=== PATIENT | female | born 1980 | race Asian ===

== ENCOUNTER 2016-11-24 14:55 | Emergency (ER) | payer OTHER ==
--- NOTE | 2016-11-24 14:59 | PDOC ---
History of Present Illness <Bunny Marc - Last Filed: 11/24/16 15:13> - General History Source: Patient Exam Limitations: No Limitations - History of Present Illness Initial Comments: 11/24/16 15:06 The patient is a 36 year old female with no significant past medical history, presenting to the Emergency Department with a splinter to her right pointer finger as of last night. She reports that the splinter is stuck under the fingernail, towards the medial aspect of her finger. She states that she soaked her finger in warm water last night but was unable to pull out the splinter. She reports pain associated with the splinter. She states that she is right handed. She admits that her last tetanus vaccination was more than 5 years ago. Allergies: Penicillin Social Hx: Denies history of cigarette smoking. <Maylin Trotter - Last Filed: 11/24/16 15:17> - General Chief Complaint: Injury Stated Complaint: RT 2ND FINGER SPLINTER Time Seen by Provider: 11/24/16 14:59 Past History <Bunny Marc - Last Filed: 11/24/16 15:13> <Maylin Trotter - Last Filed: 11/24/16 15:17> - Past Medical History Allergies/Adverse Reactions: Allergies Allergy/AdvReac Type Severity Reaction Status Date / Time Penicillins Allergy Hives Verified 11/24/16 15:00 Home Medications: Ambulatory Orders NK [No Known Home Medication] 11/24/16 Review of Systems - Review of Systems Able to Perform ROS?: Yes Comments:: 11/24/16 15:06 CONSTITUTIONAL: Absent: fever, no chills, no fatigue MUSCULOSKELETAL: Absent: back pain, no arthralgia, no myalgia SKIN: Present: + splinter under nail bed of right pointer finger Absent: rash <Maylin Trotter - Last Filed: 11/24/16 15:17> *Physical Exam - Vital Signs Last Vital Signs Temp Pulse Resp BP Pulse Ox 98.8 F 74 18 109/71 100 11/24/16 14:55 11/24/16 14:55 11/24/16 14:55 11/24/16 14:55 11/24/16 14:55 <Maylin Trotter - Last Filed: 11/24/16 15:17> Medical Decision Making - Medical Decision Making 11/24/16 15:13 The patient is well-appearing and in no acute distress PROCEDURE NOTE: Affected finger Betadine prepped 1 mL of lidocaine without epinephrine infused to affected finger Using the dull end of an 11 blade scalpel, cuticle was lifted off of the nail Using a very thin nose pair of tweezers, several small pieces of a foreign body , and then one large piece of a foreign body was removed There does not appear to be any further large retained foreign body Will treat with antibiotics for infection prophylaxis given the possibility of small, retained foreign body pieces Clinical impression: Splinter; status post removal I discussed the physical exam findings, ancillary test results and final diagnoses with the patient. I answered all of the patient's questions. The patient was satisfied with the care received and felt comfortable with the discharge plan and treatment plan. The patient will call their primary care physician within 24 hours to arrange follow-up and will return to the Emergency Department with any new, persistent or worsening symptoms. A portion of this note was documented by scribe services under my direction. I have reviewed the details of the note, within reason, and agree with the documentation with the following case summary and management plan written by me. <Bunny Marc - Last Filed: 11/24/16 15:13> *DC/Admit/Observation/Transfer <Bunny Marc - Last Filed: 11/24/16 15:13> <Maylin Trotter - Last Filed: 11/24/16 15:17> Diagnosis at time of Disposition: Foreign body hand - Discharge Dispostion Disposition: HOME Condition at time of disposition: Improved - Referrals Referrals: Javier Patterson MD [Primary Care Provider] - - Patient Instructions Printed Discharge Instructions: DI for Splinter Removal Additional Instructions: Return to the emergency department immediately with ANY new, persistent or worsening symptoms. You MUST call and follow up with your doctor tomorrow. Please make sure your doctor reviews the results of your emergency department evaluation.
[2016-11-24 15:03] VITALS: BP 109/71; PULSE 74; TEMP 98.8; BMI 22.1
[2016-11-24] MEDS ORDERED: DIPHTH,PERTUSS(ACELL),TET 0.5 ML DISP.SYRIN IM ONE (15:15)
== END 2016-11-24 15:49 | disposition home or self-care (01) ==
LOC: FER 14:55
PROC: 0HCQXZZ Extirpation of Matter from Finger Nail, External Approach (ICD-10-PCS; principal; 2016-11-24)
PROC: 3E0234Z Introduction of Serum, Toxoid and Vaccine into Muscle, Percutaneous Approach (ICD-10-PCS; 2016-11-24)
DX: S60.450A Superficial foreign body of right index finger, initial encounter (principal); X58.XXXA Exposure to other specified factors, initial encounter; Y93.9 Activity, unspecified; Y92.9 Unspecified place or not applicable
CPT/HCPCS: 90715; 99284-25

== ENCOUNTER 2024-10-09 04:16 | Day surgery (SDC) | payer OTHER ==
[2024-10-07 12:50] VITALS: BMI 25.6
[2024-10-09] MEDS ORDERED: LIDOCAINE 1%/EPI 1:100000 (20 ML MULTI DOSE VIAL) ONE (07:20)
[2024-10-09] MEDS ORDERED: DEXAMETHASONE SOD PHOSPHATE 4 MG/1 ML VIAL ONE (07:29)
[2024-10-09] MEDS ORDERED: LIDOCAINE HCL/PF 2% SDV 5ML VIAL ONE (07:29)
[2024-10-09] MEDS ORDERED: MIDAZOLAM HCL 2 MG/2 ML SINGLE DOSE VIAL ONE (07:29)
[2024-10-09] MEDS ORDERED: PROPOFOL 20 ML ONE (07:29)
[2024-10-09] MEDS ORDERED: ONDANSETRON 4 MG/2 ML VIAL ONE (07:29)
[2024-10-09] MEDS ORDERED: ROCURONIUM BROMIDE 50 MG/5 ML SYRINGE ONE (07:29)
[2024-10-09] MEDS ORDERED: CLINDAMYCIN PHOSPHATE 600 MG/4 ML VIAL ONE (08:26)
[2024-10-09] MEDS ORDERED: PROTAMINE SULFATE 50 MG/5 ML VIAL ONE (08:33)
[2024-10-09] MEDS ORDERED: PROPOFOL 40 ML ONE (08:34)
[2024-10-09] MEDS ORDERED: KETAMINE HCL 200 MG/20 ML VIAL ONE (08:39)
[2024-10-09] MEDS ORDERED: GLYCOPYRROLATE 0.2 MG/1 ML VIAL ONE (08:41)
[2024-10-09] MEDS ORDERED: LACTATED RINGERS SOLUTION 1,000 ML IV SCH (09:30)
[2024-10-09 10:28] VITALS: RESP 20
[2024-10-09 11:12] VITALS: BP 122/78; PULSE 64; TEMP 98
== END 2024-10-09 10:55 | disposition home or self-care (01) ==
LOC: JASU-SURG 04:16
PROVIDERS: ATTEND Surgery
PROC: 0JB10ZZ Excision of Face Subcutaneous Tissue and Fascia, Open Approach (ICD-10-PCS; principal; 2024-10-09 08:52)
DX: L72.3 Sebaceous cyst (principal)
CPT/HCPCS: 81025; 88305-TC; 94760